=== PATIENT | male | born 1965 | race Two or more races ===

== ENCOUNTER 2025-04-28 12:46 | Emergency (ER) | payer MEDICAID, OTHER ==
[~2025-04-28] VITALS: Ht 177.8 cm; Wt 105.7 kg
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
[2025-04-28] MEDS: IBUPROFEN 600 MG TAB PO ONE (15:10)
[2025-04-28 15:11] VITALS: BP 150/87; PULSE 86; RESP 18; TEMP 98.2; O2SAT 96
== END 2025-04-28 15:22 | disposition home or self-care (01) ==
LOC: ER 12:46
DX: I80.9 Phlebitis and thrombophlebitis of unspecified site (principal)